=== PATIENT | male | born 1970 | race Caucasian/White ===

== ENCOUNTER → 2017-04-19 | Outpatient (CLI) | payer MEDICAID, OTHER ==
--- NOTE | 2017-04-28 23:39 | ECWPNPC ---
PATIENT NAME: NACHO LUEVANO : 1970 GENDER: MALE VISIT DATE: 04/19/2017 DISCHARGE DATE: 04/19/17 1556 VISIT LOCKED DATE TIME: PHYSICIAN: JF FRANKS PHYSICIAN PAGER NO: [phone] RESOURCE: JF FRANKS REASON FOR APPOINTMENT 1. LOW BACK PAIN HISTORY OF PRESENT ILLNESS NEW PATIENT CONSULT: WHEN DID YOUR PAIN FIRST START? . BRIEFLY DESCRIBE HOW YOUR PAIN STARTED? . HOW DOES YOUR PAIN CHANGE WITH TIME? . DOES YOUR PAIN AWAKEN YOU FROM SLEEP? . HOW MANY HOURS OF SLEEP DO YOU NORMALLY GET? . ANY DIAGNOSTIC TESTING? . FACILITY WHERE TESTS WERE DONE? ____. PAIN TREATMENT TREATMENT YES CANCER HAVE YOU EVER HAD ANY TYPE OF CANCER?NO NO. 47 YEAR OLD MALE PATIENT WITH HISTORY OF CHRONIC LOW BACK PAIN. PATIENT DESCRIBES THE PAIN ACHING, SHARP, TENDER, THROBBING, SORE, AND HAVING IT ALL THE TIME WITH A PAIN SCORE OF 8-10/10. 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 CURRENTLY THE PATIENT IS USING CYCLOBENZAPRINE FOR PAIN MANAGEMENT. PATIENT HAS NOT TRIED PHYSICAL THERAPY FOR THIS PAIN AT THIS TIME. PATIENT REPORTS THAT ANY TYPE OF ACTIVITY INCLUDING STANDING, SITTING, OR WALKING FOR ANY LENGTH OF TIME INCREASES THE PAIN IN HIS LOWER BACK. PATIENT DENIES UNEXPLAINABLE WEIGHT LOSS, FEVER, CHILLS, NEW CHANGES ON HIS URINARY OR BOWEL CONTROL. PAIN SCREENING: PATIENT HAS A COMPLAINT OF ACUTE OR CHRONIC PAIN :YES FALL RISK SCREENING: SCREENING :NO FALLS IN THE PAST YEAR RODRIGUEZ INVENTORY: QUESTIONNAIRE ASSESSEDTBD SCORE VALUE CALCULATED TBD CURRENT MEDICATIONS TAKING LISINOPRIL 20 MG TABLET 1 TABLET ORALLY ONCE A DAY TAKING ALBUTEROL SULFATE (2.5 MG/3ML) 0.083% NEBULIZATION SOLUTION INHALE 3 ML VIA NEBULIZER EVERY 4 HOURS NEEDED FOR SHORTNESS OF BREATH/WHEEZE MDD#4 ORALLY QID PRN FOR SOB TAKING VENTOLIN HFA 108 (90 BASE) MCG/ACT AEROSOL SOLUTION INHALE TWO PUFFS BY MOUTH EVERY 4 HOURS NEEDED ORALLY QID PRN FOR RESCUE TAKING HYDROCODONE-ACETAMINOPHEN 5-325 MG TABLET 1 TAB ORALLY MDD 2 BID PRN FOR BACK PAIN TAKING CYCLOBENZAPRINE HCL 10 MG TABLET 1 TABLET NEEDED ORALLY BEFORE BEDTIME NOT-TAKING ROBAXIN 500 MG TABLET 2TABLETS ORALLY TID PRN FOR BACK SPASM NOT-TAKING PHYSICAL THERAPY EVALUATE AND TREAT PHYSICAL THERAPY DIRECTED M54.5 1-3X/WEEK MEDICATION LIST REVIEWED AND RECONCILED WITH THE PATIENT PAST MEDICAL HISTORY ASTHMA/COPD SPIROMETRY 02/01/2017 HYPERTENSION ALLERGIES LEXAPRO: HIVES: ALLERGY SURGICAL HISTORY NO SURGICAL HISTORY DOCUMENTED. FAMILY HISTORY FATHER: ALIVE 67 YRS, DIAGNOSED WITH CANCER MOTHER: ALIVE 67 YRS, DIAGNOSED WITH HEART DISEASE SIBLINGS: ALIVE SON(S): ALIVE 1 BROTHER(S) , 1 SISTER(S) - HEALTHY. 3 SON(S) - HEALTHY. FATHER HAD PROSTATE CANCER,MOTHER HAS HAD OPEN HEART SURGERY,HAS PACEMAKER. SOCIAL HISTORY GENERAL: TOBACCO USE ARE YOU A:CURRENT SMOKER HOW MANY CIGARETTES A DAY DO YOU SMOKE?6-10 HOW SOON AFTER YOU WAKE UP DO YOU SMOKE YOUR FIRST CIGARETTE?31-60 MIN HOW OFTEN DO YOU SMOKE CIGARETTES?EVERY DAY PATIENT COUNSELED ON THE DANGERS OF TOBACCO USE AND URGED TO QUIT:03/28/2016 ARE YOU INTERESTED IN QUITTING?THINKING ABOUT QUITTING COUNSELED THE PATIENT ON SMOKING CESSATION, EDUCATION [id number]/08/2016 ADDITIONAL FINDINGS: TOBACCO USERMODERATE CIGARETTE SMOKER (10-19 CIGS/DAY) SMOKING CESSATION INFORMATION GIVEN03/28/2016 ALCOHOL SCREENING POINTS: 5, INTERPRETATION: POSITIVE. RECREATIONAL DRUG USE DRUG USE?NO CAFFEINE 1-2/DAY. HIV / HEP-C SCREENING HIV TEST OFFERED TO PATIENT:YES DATE OFFERED:01/30/2017 TEST ACCEPTED:NO REASON:PATIENT DECLINED HEP-C TEST OFFERED TO PATIENT:NO OCCUPATION: UNEMPLOYED. DIET: REGULAR. EXERCISE: WALKS. MARITAL STATUS: SINGLE. OTHERS AT HOME: PARENTS. PETS: 3 DOGS 1 CAT. ORTHODOX ORTHODOX NO MORMONISM BELIEFS THAT WOULD IMPACT HEALTH CARE. LANGUAGE LANGUAGES SPOKEN:PORTUGUESE LEARNING BARRIERS / SPECIAL NEEDS CHANGE FROM LAST VISIT?NO BARRIERS TO LEARNING?NO HEARING IMPAIRED?NO VISION IMPAIRED?NO COGNITIVELY IMPAIRED?NO READINESS TO LEARN?YES LEARNING PREFERENCES?NO LEARNING CAPABILITIES PRESENT?YES EMOTIONAL BARRIERS?NO SPECIAL DEVICES?NO HOOP PUNCHER NEEDED?NO PAIN CLINIC PFS, CLERGY, PUBLIC HEALTH REFERRALS CLERGY REFERRAL NEEDED?NO WAS THE PROVIDER NOTIFIED OF ANY PERTINENT INFO?NO PFS REFERRAL NEEDED?NO PUBLIC HEALTH REFERRAL NEEDED?NO PATIENT: ____. 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 HOUSING: RENTS APARTMENT. HOSPITALIZATION/MAJOR DIAGNOSTIC PROCEDURE NO HOSPITALIZATION HISTORY. REVIEW OF SYSTEMS REVIEWED BY: PROVIDER: . CONSTITUTIONAL: ANY CHANGE IN YOUR MEDICAL CONDITION? NO . CHILLS NO . FEVER NO . INFECTION: DO YOU HAVE NEW INFECTIONS? NO . DO YOU HAVE HISTORY OF MRSA? NO . MUSCULOSKELETAL: ANY NEW PATTERNS OF PAIN OR NUMBNESS? NO . SYTEMIC LUPUS NO . GASTROENTEROLOGY: ANY NEW CHANGE IN BOWEL CONTROL? NO . BARRETTS ESOPHAGUS NO . CIRRHOSIS NO . HEPATITIS NO . LIVER FAILURE NO . ACID REFLUX NO . UNEXPLAINED WEIGHT LOSS NO . GENITOURINARY: ANY NEW CHANGE IN BLADDER CONTROL? NO . IS THERE A CHANCE YOU COULD BE ? NO . HEMATOLOGY/LYMPH: DO YOU TAKE ANY BLOOD THINNERS? (FOR EXAMPLE- COUMADIN, PLAVIX, AGGRENOX, PLATEL, PRADAXA, OR XARELTO) NO . WHEN WAS YOUR LAST DOSE? DATE: TIME: . LOW PLATELET COUNT NO . SICKLE CELL DISEASE NO . VON WILLIEBRANDS NO . FACTOR V LEIDEN NO . THALLASEMIA NO . ANEMIA NO . EASY BRUISING NO . NEUROLOGY: HAVE YOU FALLEN IN THE PAST 6 MONTHS? NO . ANY NEW EXTREMITY NUMBNESS OR WEAKNESS? NO . HEAD INJURY NO . DEMENTIA NO . CEREBRAL PALSY NO . MULTIPLE SCLEROSIS NO . DIZZINESS NO . HEADACHE NO . STROKES NO . VERTIGO NO . CARDIOLOGY: DO YOU HAVE A PACEMAKER OR DEFIBRILLATOR? NO . ANGINA NO . HEART ATTACK NO . HEART SURGERY NO . CONGESTIVE HEART FAILURE/FLUID OVERLOAD NO . CHEST PAIN NO . HIGH BLOOD PRESSURE NO . IRREGULAR HEART BEAT NO . RESPIRATORY: HAVE YOU BEEN SICK IN THE PAST WEEK? NO . FEVER NO . FLU LIKE SYMPTOMS? NO . CPAP NO . BYPAP NO . ASTHMA NO . EMPHYSEMA NO . CHRONIC LUNG DISEASES NO . SHORTNESS OF BREATH ON EXERTION NO . DO YOU USE ANY TYPE OF TOBACCO (SMOKE, SMOKELESS, CHEW)? NO . COUGH NO . SNORING NO . INTEGUMENTARY: DO YOU HAVE ANY RASHES OR OPEN SORES? NO . ALLERGIC/IMMUNO: ARE YOU ALLERGIC TO SHELLFISH OR IV DYE? NO . ANY NEW ALLERGIES? NO . PSYCHIATRIC: DO YOU HAVE THOUGHTS OF HURTING YOURSELF OR SOMEONE ELSE? NO . ARE YOU ABUSED, NEGLECTED, OR IN AN UNSAFE ENVIRONMENT? NO . ENDOCRINOLOGY: ARE YOU DIABETIC? NO . THYROID DISORDER NO . OTHER: DO YOU NEED ANY PRESCRIPTIONS? NO . IF YES, PLEASE LIST: ____ . ANY NEW PROBLEMS WITH YOUR MEDICATIONS? NO . WHEN DID YOU LAST EAT? ____ . WHEN DID YOU LAST DRINK? ____ . WHAT DID YOU LAST DRINK? ____ . NAME OF PERSON DRIVING YOU HOME? ____ . DO YOU HAVE ANY OTHER QUESTIONS OR CONCERNS NO . VITAL SIGNS WT 184.4 LBS, HT 69.25 IN, BMI 27.03 INDEX, BP 149/93 MM HG, HR 84 /MIN, RR 18 /MIN, TEMP 98.4 F, OXYGEN SAT % 94%, NA INITIALS AW 1416, REVIEWED BY: KG. EXAMINATION : PATIENT IS ALERT O X 3 AND COOPERATIVE. TENDERNESS IN THE LOWER BACK AND PARASPINAL MUSCLE GROUP. PATIENT ABLE TO BEND 45 DEGREES AND EXTEND 5 DEGREES. BANDS OF TISSUE, RESTRICTION OF MOVEMENT AND PRESENCE OF TRIGGER POINTS IN THE LOWER BACK AREA. X-RAY DONE ON 02/22/17 SHOWS DEGENERATIVE DISC DISEASE AND SPONDYLOSIS. PENDING LUMBAR MRI. ASSESSMENTS LOW BACK PAIN, UNSPECIFIED BACK PAIN LATERALITY, UNSPECIFIED CHRONICITY, WITH SCIATICA PRESENCE UNSPECIFIED - M54.5 (PRIMARY) MYALGIA - M79.1 TREATMENT LOW BACK PAIN, UNSPECIFIED BACK PAIN LATERALITY, UNSPECIFIED CHRONICITY, WITH SCIATICA PRESENCE UNSPECIFIED REFILL CYCLOBENZAPRINE HCL TABLET, 10 MG, 1 TABLET NEEDED, ORALLY, BEFORE BEDTIME FOR SPASMS AND PAIN MDD1, 30 DAY(S), 30, REFILLS 1 NOTES: WE DISCUSSED SEVERAL ISSUES WITH MR. LUEVANO'S PAIN MANAGEMENT CASE. AT THIS TIME THE PATIENT WILL CONTINUE WITH THE SAME MEDICATION REGIME BEFORE. PATIENT IS USING THE CYCLOBENZAPRINE FOR THE MUSCLE SPASMS AND HYDROCODONE FOR THE SOMATIC PAIN. PATIENT DENIES ABUSE OF ANY MEDICATION, DENIES USE OF ILLEGAL SUBSTANCES, AND STATES HE IS ONLY USING THE MEDICATION FOR PAIN MANAGEMENT. PATIENT WAS ADVISED TO USED TYLENOL EXTRA STRENGTH NEEDED THROUGHOUT THE DAY. PATIENT UNABLE TO USE IBUPROFEN DUE TO STOMACH ISSUES. PATIENT WILL SIGN A NARCOTIC AGREEMENT TODAY. WE DISCUSSED MOVING FORWARD WITH A LUMBAR MRI TO BETTER ASSESS THE PATIENTS PAIN. PATIENT WILL CONSIDER PHYSICAL THERAPY AFTER THE MRI IS REVIEWED. AT THIS TIME NO INTERVENTIONS WILL BE HELD UNTIL I AM ABLE TO VIEW THE MRI. INSTRUCTIONS WERE GIVEN, QUESTIONS WERE ANSWERED, PATIENT REPORTS UNDERSTANDING AND AGREES WITH THE PLAN. I, RAY HIGHTOWER, DOCUMENTED THE ABOVE INFORMATION ACTING A SCRIBE FOR DR. FRANKS. I HAVE REVIEWED THE ABOVE DOCUMENT, WRITTEN BY RAY NATH AND I VERIFY THAT IT IS ACCURATE. DEAR DR. SAAB :THANK YOU FOR YOUR KIND REFERRAL OF MR. LUEVANO. YOU WANT TO DISCUSS HER CASE WITH ME PLEASE CALL ME AT THE PAIN CENTER AT [phone]. SINCERELY,JF FRANKS, MD[facility], [facility]. OTHERS REFILL HYDROCODONE-ACETAMINOPHEN TABLET, 5-325 MG, 1 TAB, ORALLY MDD 2, BID PRN FOR BACK PAIN MDD2, 30 DAY(S), 60, REFILLS 0 PREVENTIVE MEDICINE DISCUSSED NARCOTIC AGREEMENT AND ENCOURAGED PT TO READ THOROUGHLY. GAVE HIM COPY. PROCEDURE CODES FA211 ESTABILISHED PATIENT [facility] FAC[facility] CHARGE G8427 DOC MEDS VERIFIED W/PT OR RE G1595 PAIN ASSESS POS TOOL F/U PLAN DOC DISPOSITION & COMMUNICATION FOLLOW UP 4 WEEKS ELECTRONICALLY SIGNED BY JF FRANKS MD ON 04/28/2017 AT 07:32 PM EDT DISCLAIMER : THIS IS A VISIT SUMMARY EXTRACTED FROM THE [employer] CHART. IT IS NOT A COPY OF THE [employer] PROGRESS NOTE. MTDD
== END | disposition home or self-care (01) ==
LOC: M PAIN 14:30
PROVIDERS: ATTEND Anesthesiology
DX: G89.29 Other chronic pain (principal); M54.5 Low back pain; M79.1 Myalgia; J44.9 Chronic obstructive pulmonary disease, unspecified; I10 Essential (primary) hypertension; Z79.899 Other long term (current) drug therapy; Z88.8 Allergy status to other drugs, medicaments and biological substances; F17.210 Nicotine dependence, cigarettes, uncomplicated

== ENCOUNTER → 2017-05-20 | Outpatient (CLI) | payer MEDICAID, OTHER ==
--- NOTE | 2017-05-20 09:43 | REP ---
MR LUMBAR SPINE WITHOUT CONTRAST: HISTORY: Back pain. Decreased signal intensity on T2-weighted images is present in the L4-5 and L5-S1 intervertebral discs. The discs are decreased in height. These findings are consistent with disc degeneration. There is no disc bulge or herniation at the L1-2 level. The L1 nerves exit the neural foramina without compression. A diffuse disc bugle is present at the L2-3 level. There is minimal compression of the thecal sac. The L2 nerves exit the neural foramina without compression. A diffuse disc bulge is present at the L3-4 level. There is minimal compression of the thecal sac. The L3 nerves exit the neural foramina without compression. A diffuse disc bulge and small central disc protrusion are present at the L4-5 level. There is hypertrophy of the ligamenta flava and posterior articulating facets. These findings produce minimal central canal stenosis. The L4 nerves exit the neural foramina without compression. A diffuse disc bulge and small left paracentral disc extrusion are present at the L5-S1 level. There is inferior migration of disc material. There is minimal compression of the thecal sac and left S1 nerve as it exits the thecal sac and in the left S1 lateral recess. There is hypertrophy of the posterior articulating facets. The L5 nerves exit the neural foramina without compression. The conus medullaris is normal in appearance terminating at the level of the L1-2 intervertebral disc. Normal signal intensity is present in the lumbar vertebral bodies. IMPRESSION: 1. Diffuse disc bulges at the L2-3 and L3-4 levels with minimal thecal sac compression. 2. Minimal central canal stenosis at the L4-5 level secondary to disc bulge, disc protrusion, ligamentous and facet hypertrophy. 3. Diffuse disc bugle and small left paracentral disc extrusion at the L5-S1 level with minimal compression of the thecal sac and left S1 nerve as it exits the thecal sac and in the left S1 lateral recess. Signed by Maurilio Medeiros MD 05/20/2017 09:54 A
== END ==
LOC: M RAD 07:00
PROVIDERS: ATTEND Anesthesiology
DX: M51.26 Other intervertebral disc displacement, lumbar region (principal); M54.5 Low back pain

== ENCOUNTER → 2017-05-31 | Outpatient (CLI) | payer MEDICAID, OTHER ==
--- NOTE | 2017-06-18 01:31 | ECWPNPC ---
PATIENT NAME: NACHO LUEVANO : 1970 GENDER: MALE VISIT DATE: 05/31/2017 DISCHARGE DATE: 05/31/17 1050 VISIT LOCKED DATE TIME: PHYSICIAN: JF FRANKS PHYSICIAN PAGER NO: [phone] RESOURCE: JF FRANKS REASON FOR APPOINTMENT 1. BACK AND NECK PAIN HISTORY OF PRESENT ILLNESS HISTORY OF PRESENT ILLNESS: PAIN THE PATIENT DESCRIBES THE PAIN... 47 YEAR OLD MALE PATIENT WITH HISTORY OF CHRONIC LOW AND NECK BACK PAIN. PATIENT DESCRIBES THE PAIN ACHING AND HAVING IT ALL THE TIME WITH A PAIN SCORE OF 9/10 AT TODAYS VISIT. PATIENT STATES THAT THE PAIN IN HIS RIGHT SHOULDER GOES DOWN INTO HIS THUMB AND STATES THAT HIS THUMB IS NUMB AND IS UNSURE OF WHAT IS CAUSING THIS PROBLEM. CURRENTLY THE PATIENT IS USING CYCLOBENZAPRINE AND HYDROCODONE FOR PAIN MANAGEMENT. PATIENT SAYS THAT HE BELIEVES THAT THE CYCLOBENZAPRINE DOES NOT HELP IN AIDING HIS PAIN. PATIENT REPORTS THAT ANY TYPE OF ACTIVITY INCLUDING STANDING, SITTING, OR WALKING FOR ANY LENGTH OF TIME INCREASES THE PAIN IN HIS LOWER BACK. PATIENT STATES THE HYDROCODONE KEEPS HIM MOBILE AND FUNCTIONAL BUT WHEN THE MEDICATION WEARS OFF HE HAS SEVERE PAIN. PATIENT REPORTS TRYING TO USE TYLENOL THROUGH THE DAY BUT STATES IT DOES NOT WORK FOR PAIN CONTROL THROUGH OUT THE DAY. PATIENT HAS NOT TRIED PHYSICAL THERAPY AT THIS TIME. PATIENT DENIES UNEXPLAINABLE WEIGHT LOSS, FEVER, CHILLS, NEW CHANGES ON HIS URINARY OR BOWEL CONTROL. FALL RISK SCREENING: SCREENING :NO FALLS IN THE PAST YEAR CURRENT MEDICATIONS TAKING LISINOPRIL 20 MG TABLET 1 TABLET ORALLY ONCE A DAY TAKING ALBUTEROL SULFATE (2.5 MG/3ML) 0.083% NEBULIZATION SOLUTION INHALE 3 ML VIA NEBULIZER EVERY 4 HOURS NEEDED FOR SHORTNESS OF BREATH/WHEEZE MDD#4 ORALLY QID PRN FOR SOB TAKING VENTOLIN HFA 108 (90 BASE) MCG/ACT AEROSOL SOLUTION INHALE TWO PUFFS BY MOUTH EVERY 4 HOURS NEEDED ORALLY QID PRN FOR RESCUE TAKING HYDROCODONE-ACETAMINOPHEN 5-325 MG TABLET 1 TAB ORALLY MDD 2 BID PRN FOR BACK PAIN MDD2 TAKING CYCLOBENZAPRINE HCL 10 MG TABLET 1 TABLET NEEDED ORALLY BEFORE BEDTIME FOR SPASMS AND PAIN MDD1 TAKING TYLENOL 325 MG TABLET 2 TABLETS NEEDED ORALLY EVERY 6 HRS MEDICATION LIST REVIEWED AND RECONCILED WITH THE PATIENT PAST MEDICAL HISTORY ASTHMA/COPD SPIROMETRY 02/01/2017 HYPERTENSION PAIN MANAGEMENT-FRANKS ALLERGIES LEXAPRO: HIVES: ALLERGY SURGICAL HISTORY NO SURGICAL HISTORY DOCUMENTED. FAMILY HISTORY FATHER: ALIVE 67 YRS, DIAGNOSED WITH CANCER MOTHER: ALIVE 67 YRS, DIAGNOSED WITH HEART DISEASE SIBLINGS: ALIVE SON(S): ALIVE 1 BROTHER(S) , 1 SISTER(S) - HEALTHY. 3 SON(S) - HEALTHY. FATHER HAD PROSTATE CANCER,MOTHER HAS HAD OPEN HEART SURGERY,HAS PACEMAKER. SOCIAL HISTORY GENERAL: TOBACCO USE ARE YOU A:CURRENT SMOKER HOW OFTEN DO YOU SMOKE CIGARETTES?EVERY DAY HOW SOON AFTER YOU WAKE UP DO YOU SMOKE YOUR FIRST CIGARETTE?31-60 MIN HOW MANY CIGARETTES A DAY DO YOU SMOKE?6-10 ARE YOU INTERESTED IN QUITTING?THINKING ABOUT QUITTING ADDITIONAL FINDINGS: TOBACCO USERMODERATE CIGARETTE SMOKER (10-19 CIGS/DAY) PATIENT COUNSELED ON THE DANGERS OF TOBACCO USE AND URGED TO QUIT:03/28/2016 COUNSELED THE PATIENT ON SMOKING CESSATION, EDUCATION [id number]/08/2016 SMOKING CESSATION INFORMATION GIVEN03/28/2016 ALCOHOL SCREENING POINTS: 5, INTERPRETATION: POSITIVE. RECREATIONAL DRUG USE DRUG USE?NO CAFFEINE 1-2/DAY. HIV / HEP-C SCREENING HIV TEST OFFERED TO PATIENT:YES DATE OFFERED:01/30/2017 TEST ACCEPTED:NO HEP-C TEST OFFERED TO PATIENT:NO REASON:PATIENT DECLINED OCCUPATION: UNEMPLOYED. DIET: REGULAR. EXERCISE: WALKS. MARITAL STATUS: SINGLE. OTHERS AT HOME: PARENTS. PETS: 3 DOGS 1 CAT. ORTHODOXY ORTHODOXY NO ALEVISM BELIEFS THAT WOULD IMPACT HEALTH CARE. 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 HOUSING: RENTS APARTMENT. HOSPITALIZATION/MAJOR DIAGNOSTIC PROCEDURE NO HOSPITALIZATION HISTORY. REVIEW OF SYSTEMS REVIEWED BY: PROVIDER: JF FRANKS MD . CONSTITUTIONAL: ANY CHANGE IN YOUR MEDICAL CONDITION? NO . CHILLS NO . FEVER NO . INFECTION: DO YOU HAVE NEW INFECTIONS? NO . DO YOU HAVE HISTORY OF MRSA? NO . MUSCULOSKELETAL: ANY NEW PATTERNS OF PAIN OR NUMBNESS? YES PT REPORTS PAIN NOW EXTENDS FROM RIGHT SHOULDER DOWN ARM INTO RIGHT THUMB, WITH NUMBNESS IN HIS THUMB. NOT CONSTANT, BUT HAPPENS DAILY, HAS STARTED OVER TWO WEEKS AGO. PT REPORTS HE SLIPPED ON A HOSE ABOUT THREE WEEKS AGO. AND HAS INCREASED BACK PAIN SINCE THAT TIME. HAS TRIED HEAT TO AREA TO NO EFFECT. . GASTROENTEROLOGY: ANY NEW CHANGE IN BOWEL CONTROL? NO . GENITOURINARY: ANY NEW CHANGE IN BLADDER CONTROL? NO . IS THERE A CHANCE YOU COULD BE ? NO . HEMATOLOGY/LYMPH: DO YOU TAKE ANY BLOOD THINNERS? (FOR EXAMPLE- COUMADIN, PLAVIX, AGGRENOX, PLATEL, PRADAXA, OR XARELTO) NO . WHEN WAS YOUR LAST DOSE? DATE: TIME: . NEUROLOGY: HAVE YOU FALLEN IN THE PAST 6 MONTHS? NO . ANY NEW EXTREMITY NUMBNESS OR WEAKNESS? NO . CARDIOLOGY: DO YOU HAVE A PACEMAKER OR DEFIBRILLATOR? NO . RESPIRATORY: HAVE YOU BEEN SICK IN THE PAST WEEK? NO . FEVER NO . FLU LIKE SYMPTOMS? NO . COUGH NO . INTEGUMENTARY: DO YOU HAVE ANY RASHES OR OPEN SORES? NO . ALLERGIC/IMMUNO: ARE YOU ALLERGIC TO SHELLFISH OR IV DYE? NO . ANY NEW ALLERGIES? NO . PSYCHIATRIC: DO YOU HAVE THOUGHTS OF HURTING YOURSELF OR SOMEONE ELSE? NO . ARE YOU ABUSED, NEGLECTED, OR IN AN UNSAFE ENVIRONMENT? NO . ENDOCRINOLOGY: ARE YOU DIABETIC? NO . OTHER: DO YOU NEED ANY PRESCRIPTIONS? NO . IF YES, PLEASE LIST: ____ . ANY NEW PROBLEMS WITH YOUR MEDICATIONS? NO . WHEN DID YOU LAST EAT? ____ . WHEN DID YOU LAST DRINK? ____ . WHAT DID YOU LAST DRINK? ____ . NAME OF PERSON DRIVING YOU HOME? ____ . DO YOU HAVE ANY OTHER QUESTIONS OR CONCERNS YES PT REPORTS HIS USE OF TYLENOL HAS NOT BEEN EFFECTIVE FOR DURING A DAY OF WORK, AND WOULD LIKE TO TRY SOMETHING DIFFERENT FOR HIS PAIN. . VITAL SIGNS WT 183.6 LBS, HT 69.25 IN, BMI 26.91 INDEX, BP 140/94 MM HG, HR 72 /MIN, RR 18 /MIN, TEMP 98.3 F, OXYGEN SAT % 95%, SAFE IN ENV? (Y/N) YES, NA INITIALS NE 09:53, REVIEWED BY: TACO. EXAMINATION : PATIENT IS ALERT O X 3 AND COOPERATIVE. TENDERNESS IN THE LOWER BACK AND PARASPINAL MUSCLE GROUP. PATIENT ABLE TO BEND 45 DEGREES AND EXTEND 5 DEGREES. BANDS OF TISSUE, RESTRICTION OF MOVEMENT AND PRESENCE OF TRIGGER POINTS IN THE LOWER BACK AREA. LUMBAR MRI DONE ON 05/20/17 SHOWS DISC BULGES AT L2-L3 AND L3-L4, CANAL STENOSIS AT L4-L5 AND A DISC EXTRUSION AT L5-S1. TENDERNESS IN THE CERVICAL AREA AND PARASPINAL MUSCLE GROUP. EXTENSION OF THE NECK TO THE RIGHT INCREASES PAIN IN THE RIGHT SIDE. RIGHT ARM IS WEAKER THEN THE LEFT AT EXTENSION AND FLEXION. PENDING X-RAY OF CERVICAL SPINE. ASSESSMENTS MYALGIA - M79.1 (PRIMARY) SPONDYLOSIS WITHOUT MYELOPATHY OR RADICULOPATHY, LUMBAR REGION - M47.816 SPONDYLOSIS WITHOUT MYELOPATHY OR RADICULOPATHY, LUMBOSACRAL REGION - M47.817 CERVICALGIA - M54.2 TREATMENT MYALGIA NOTES: WE DISCUSSED SEVERAL ISSUES WITH MR. LUEVANO'S PAIN MANAGEMENT CASE. AT THIS TIME THE PATIENT WILL CONTINUE TO USE THE HYDROCODONE FOR THE SOMATIC PAIN. I WOULD LIKE THE PATIENT TO START CYMBALTA TO AID IN NEUROSKELETON PAIN AND TIZANIDINE FOR THE MUSCLE SPASMS TO BE USED AT NIGHT. MR. LUEVANO WAS ADVISED TO USE THE CYMBALTA TWO TIMES A DAY WITH FOOD BUT WAS ADVISED TO STOP THE MEDICATION IF HE HAS ANY ADVERSE SIDE EFFECTS. PATIENT DENIES ABUSE OF ANY MEDICATION, DENIES USE OF ILLEGAL SUBSTANCES INCLUDING MARIJUANA, AND STATES HE IS ONLY USING THE MEDICATION FOR PAIN MANAGEMENT. PATIENT IS AWARE THAT HE WILL HAVE TO TAKE URINE TOXICOLOGY SCEENINGS AT RANDOM. PATIENT ALSO WAS REMINDED TO BRING ALL MEDICATIONS TO EVERY VISIT. I ADVISED THE PATIENT TO STOP TAKING THE CYCLOBENZAPRINE DUE TO THE MEDICATION NOT AIDING IN PAIN RELIEF. DUE TO THE PAIN IN THE CERVICAL AREA THAT RUNS DOWN TO THE RIGHT THUMB I WOULD LIKE THE PATIENT TO RECEIVE A CERVICAL MRI. PATIENT WILL FOLLOWUP WITH MYSELF IN 7 WEEKS. I LOLA ZAMORA DOCUMENTED THE ABOVE INFORMATION ACTING A MEDICAL INFORMATION SPECIALIST FOR DR. FRANKS. I HAVE REVIEWED THE ABOVE DOCUMENT WRITTEN BY LOLA NATH AND I VERIFY THAT IT IS ACCURATE. OTHERS START CYMBALTA CAPSULE DELAYED RELEASE PARTICLES, 30 MG, 1 CAPSULE WITH FOOD, ORALLY FOR PAIN, TWICE A DAY, 30 DAY(S), 60 CAPSULE, REFILLS 1 START TIZANIDINE HCL TABLET, 2 MG, 1 TABLET NEEDED, ORALLY, BEFORE BEDTIME MAY REPEAT IN 4 HRS MDD2, 30 DAY(S), 50, REFILLS 1 REFILL HYDROCODONE-ACETAMINOPHEN TABLET, 5-325 MG, 1 TAB, ORALLY MDD 2, BID PRN FOR BACK PAIN MDD2, 30 DAY(S), 60, REFILLS 0 PROCEDURE CODES FA211 ESTABILISHED PATIENT [facility] CHARGE G8427 DOC MEDS VERIFIED W/PT OR RE G2330 PAIN ASSESS POS TOOL F/U PLAN DOC DISPOSITION & COMMUNICATION FOLLOW UP 6 WEEKS ELECTRONICALLY SIGNED BY JF FRANKS MD ON 06/17/2017 AT 06:34 PM EDT DISCLAIMER : THIS IS A VISIT SUMMARY EXTRACTED FROM THE [facility] CH[facility]. IT IS NOT A COPY OF THE [employer] PROGRESS NOTE. MTDD
== END | disposition home or self-care (01) ==
LOC: M PAIN 09:30
PROVIDERS: ATTEND Anesthesiology
DX: G89.29 Other chronic pain (principal); M79.1 Myalgia; M47.816 Spondylosis without myelopathy or radiculopathy, lumbar region; M47.817 Spondylosis without myelopathy or radiculopathy, lumbosacral region; M54.2 Cervicalgia; J44.9 Chronic obstructive pulmonary disease, unspecified; I10 Essential (primary) hypertension; Z79.899 Other long term (current) drug therapy; Z88.8 Allergy status to other drugs, medicaments and biological substances; F17.210 Nicotine dependence, cigarettes, uncomplicated

== ENCOUNTER → 2017-11-29 | Outpatient (CLI) | payer OTHER, MEDICAID | LOC: M PAIN 11:15 | DX: G89.29 Other chronic pain (principal); M47.816 Spondylosis without myelopathy or radiculopathy, lumbar region; M47.817 Spondylosis without myelopathy or radiculopathy, lumbosacral region; M79.1 Myalgia; J44.9 Chronic obstructive pulmonary disease, unspecified; I10 Essential (primary) hypertension; F17.210 Nicotine dependence, cigarettes, uncomplicated; Z79.891 Long term (current) use of opiate analgesic; Z79.899 Other long term (current) drug therapy; Z88.8 Allergy status to other drugs, medicaments and biological substances | CPT/HCPCS: G0463 ==

== ENCOUNTER → 2018-01-07 | Outpatient (CLI) | payer OTHER, MEDICAID | LOC: M PAIN 14:45 | DX: M79.1 Myalgia (principal); M47.816 Spondylosis without myelopathy or radiculopathy, lumbar region; M47.817 Spondylosis without myelopathy or radiculopathy, lumbosacral region; J44.9 Chronic obstructive pulmonary disease, unspecified; I10 Essential (primary) hypertension; F17.210 Nicotine dependence, cigarettes, uncomplicated; Z79.891 Long term (current) use of opiate analgesic; Z79.899 Other long term (current) drug therapy; Z88.8 Allergy status to other drugs, medicaments and biological substances | CPT/HCPCS: G0463 ==

== ENCOUNTER → 2018-03-07 | Outpatient (CLI) | payer OTHER, MEDICAID | LOC: M PAIN 15:00 | DX: M54.5 Low back pain (principal); M79.1 Myalgia; J44.9 Chronic obstructive pulmonary disease, unspecified; I10 Essential (primary) hypertension; F17.210 Nicotine dependence, cigarettes, uncomplicated; Z79.891 Long term (current) use of opiate analgesic; Z79.899 Other long term (current) drug therapy; Z88.8 Allergy status to other drugs, medicaments and biological substances | CPT/HCPCS: G0463 ==